=== PATIENT | male | born 1995 | race Caucasian/White ===

== ENCOUNTER 2024-01-23 18:02 | Emergency (ER) | payer SELFPAY ==
[2024-01-23] MEDS: Pantoprazole 40 MG in Sodium Chloride 0.9% 10 ML IVPUSH ONE (18:20)
[2024-01-23] MEDS: Ketorolac 30 MG/ML SDV IVPUSH ONE (18:31)
[2024-01-23] MEDS: Dexamethasone 4 MG/ML SDV IVPUSH ONE (18:32)
[2024-01-23 18:35] LABS: HEMATOCRIT 42.3 % (42.0-52.0); HEMOGLOBIN 14.8 g/dL (14.0-18.0); MEAN CORPUSCULAR VOLUME 85.6 fL (83.0-99.0); MEAN PLATELET VOLUME 9.4 fL (9.4-12.4); PLATELET COUNT,PLT 200 K/uL (150-400); RED BLOOD CELL COUNT 4.94 M/uL (4.52-5.90); WHITE BLOOD CELL COUNT,WBC 12.26 K/uL (3.9-11.3)
[2024-01-23 19:14] LABS: A/G RATIO 1.3 (0.9-1.6); ALANINE AMINOTRANSFERASE,ALT 47 IU/L (14-63); ALBUMIN 4.3 g/dL (3.4-5.0); ALKALINE PHOSPHATASE 38 U/L (46-116); ASPARTATE AMNIOTRANSFERASE,AST 36 IU/L (15-37); BILIRUBIN TOTAL 1.1 mg/dL (0.2-1.0); BLOOD UREA NITROGEN,BUN 21 mg/dL (7.0-18.0); CALCIUM 9.4 mg/dL (8.5-10.1); CARBON DIOXIDE,CO2 28.9 mmol/L (21.0-32.0); CHLORIDE,CL 103 mmol/L (98-107); EST CRCL DRUG DOSING (CG) 106.78 mL/min; ETHANOL BLOOD MEDICAL <3 mg/dL; GLUCOSE RANDOM 145 mg/dL (74-106); LIPASE 27 U/L (16-77); MAGNESIUM 1.5 mg/dL (1.8-2.4); POTASSIUM,K 3.7 mmol/L (3.5-5.1); PRO B-TYPE NATRIUR PEPT,BNPPRO 12 pg/mL (0-125); PROTEIN TOTAL,TP 7.5 g/dL (6.4-8.2); SODIUM,NA 141 mmol/L (136-148)
[2024-01-23 19:17] LABS: ESTIMATED GFR 106 mL/min (>60)
[2024-01-23 19:48] LABS: LYMPHOCYTES ABSOLUTE MAN 0.61 K/uL (1.00-4.80); LYMPHOCYTES PERCENT MAN 5 % (24-44); MONOCYTES ABSOLUTE MAN 0.49 K/uL (0.00-0.80); MONOCYTES PERCENT MAN 4 % (0-8); SEG NEUTROPHILS ABSOLUTE MAN 11.16 K/uL (1.80-7.70); SEG NEUTROPHILS PERCENT MAN 91 % (41-71)
[2024-01-23] MEDS: Magnesium Sulfate/Water Premix 2 GM in Premix Bag 1 BAG IV ONE (20:06)
== END 2024-01-23 20:24 | disposition home or self-care (01) ==
LOC: MW.ED 18:02
DX: R07.9 Chest pain, unspecified (principal); R11.2 Nausea with vomiting, unspecified; E83.42 Hypomagnesemia; R06.02 Shortness of breath
CPT/HCPCS: 36415; 71045; 80053; 80307; 83690; 83735; 83880; 84484; 85025; 93005; 96374; 99285; J2470; J3490